=== PATIENT | female | born 1975 | race Caucasian/White ===

== ENCOUNTER → 2017-03-29 | Outpatient (CLI) | payer OTHER ==
[~2017-03-29] MED LIST: ALBUTEROL0.09 MG/A2 IH; AUGMENTIN 875-875 MG PO; CLARITIN10 MG PO; CLINDAMYCIN HC300 MG PO; COLACE100 MG PO; CYMBALTA20 M1 PO; CYMBALTA30 MG PO; FEROSUL325 MG PO; FERRATE325 MG PO; FLONASE ALLERG9.9 ML NAS; FLOVENT0.044 MG/A IH; MACROBID100 M1 PO; MEDROL DOSEPAK4 MG PO; MOBIC7.5 MG PO; MOTRIN800 MG PO; PEPCID20 MG PO; PREDNISONE10 MG PO; PREDNISONE20 MG PO; PRENATAL1 TA1 PO; PRILOSEC10 MG/Pack PO; PROGESTERONE IJ; QVAR40 MCG INH; SINGULAIR10 MG PO; SINGULAIR5 MG PO; VICODIN 5-3001 EACH PO; ZITHROMAX250 MG PO; ZOLOFT50 MG PO
== END | disposition home or self-care (01) ==
LOC: RAD 11:42
DX: M17.0 Bilateral primary osteoarthritis of knee (principal); M47.895 Other spondylosis, thoracolumbar region; M25.552 Pain in left hip; M54.6 Pain in thoracic spine; M54.2 Cervicalgia; M54.5 Low back pain; Z90.49 Acquired absence of other specified parts of digestive tract

== ENCOUNTER 2017-12-20 10:34 | Emergency (ER) | payer OTHER ==
[~2017-12-20] VITALS: Ht 157.4 cm; Wt 142.9 kg
[2017-12-20] MEDS ORDERED: CELEXA20 MG PO (10:40)
[2017-12-20] MEDS ORDERED: KEFLEX500 M1 PO (10:51)
== END 2017-12-20 11:05 | disposition home or self-care (01) ==
LOC: ED 10:34
DX: S91.312A Laceration without foreign body, left foot, initial encounter (principal); F17.200 Nicotine dependence, unspecified, uncomplicated; Z91.041 Radiographic dye allergy status; Z79.899 Other long term (current) drug therapy; W26.0XXA Contact with knife, initial encounter; Y93.89 Activity, other specified; Y92.89 Other specified places as the place of occurrence of the external cause; Y99.8 Other external cause status

== ENCOUNTER 2019-04-18 17:23 | Emergency (ER) | payer OTHER ==
[~2019-04-18] VITALS: Ht 157.4 cm; Wt 140.6 kg
[~2019-04-18 17:23] MED LIST changes: +CELEXA20 MG PO; +KEFLEX500 M1 PO
[2019-04-18] MEDS ORDERED: ROBAXIN500 M1 PO (19:54)
[2019-04-18] MEDS ORDERED: PREDNISONE20 M1 PO (19:54)
== END 2019-04-18 20:04 | disposition home or self-care (01) ==
LOC: ED 17:23
DX: M54.12 Radiculopathy, cervical region (principal); Z79.899 Other long term (current) drug therapy

== ENCOUNTER → 2020-04-23 | Outpatient (CLI) | payer BC, OTHER ==
[~2020-04-23] MED LIST changes: +PREDNISONE20 M1 PO; +ROBAXIN500 M1 PO
== END | disposition home or self-care (01) ==
LOC: US 14:40
DX: N83.292 Other ovarian cyst, left side (principal); N76.4 Abscess of vulva

== ENCOUNTER → 2020-09-13 | Outpatient (CLI) | payer BC, OTHER | END | disposition home or self-care (01) | LOC: RAD 07:34 | PROVIDERS: ATTEND Surgery | DX: Z01.818 Encounter for other preprocedural examination (principal); Z90.49 Acquired absence of other specified parts of digestive tract ==

== ENCOUNTER 2022-11-09 21:10 | Emergency (ER) | payer OTHER, BC ==
[~2022-11-09] VITALS: Ht 157.4 cm; Wt 90.7 kg
== END 2022-11-09 22:01 | disposition home or self-care (01) ==
LOC: ED 21:10
DX: S90.32XA Contusion of left foot, initial encounter (principal); K21.9 Gastro-esophageal reflux disease without esophagitis; F32.A Depression, unspecified; Z91.041 Radiographic dye allergy status; Z90.89 Acquired absence of other organs; W20.8XXA Other cause of strike by thrown, projected or falling object, initial encounter; Y93.89 Activity, other specified; Y92.89 Other specified places as the place of occurrence of the external cause; Y99.8 Other external cause status

== ENCOUNTER → 2022-12-16 | Outpatient (CLI) | payer OTHER ==
[2022-12-16 15:55] LABS: BASO % 0.6 % (0.0-1.0); EOS # 0.2 10*3/uL (0.0-0.4); EOS % 3.6 % (1.0-4.0); HEMATOCRIT 43.3 % (37.0-47.0); LYMPH # 2.3 10*3/uL (1.3-4.4); LYMPH % 37.8 % (27.0-41.0); MEAN CELL VOLUME 94.1 fl (81.0-99.0); MEAN CORPUSCULAR HGB 32.4 pg (27.0-31.0); MEAN CORPUSCULAR HGB CONC 34.4 g/dl (33.0-37.0); MEAN PLATELET VOLUME 8.8 fl (9.6-12.3); MONO # 0.5 10*3/uL (0.1-1.0); MONO % 7.8 % (3.0-9.0); NEUT # 3.1 10*3/uL (2.3-7.9); NEUT % 49.9 % (47.0-73.0); PLATELET COUNT AUTOMATED 297 10*3/uL (130-400); RETICULOCYTE % 1.64 % (0.50-2.50); WHITE BLOOD COUNT 6.2 10*3/uL (4.8-10.8)
[2022-12-16 15:55] LABS: BILIRUBIN Negative (Negative); BLOOD Negative (Negative); CLARITY Clear (Clear); COLOR Yellow (Yellow); GLUCOSE Negative (Negative); KETONE Negative (Negative); LEUKO ESTERASE Negative (Negative); NITRITE Negative (Negative); UROBILINOGEN 0.2 E.U./dl (0.0-1.0)
[2022-12-16 16:04] LABS: RBC 0-2 rbc/hpf (0-2); WBC 0-2 wbc/hpf (0-5)
[2022-12-16 16:17] LABS: ALKALINE PHOSPHATASE 159 U/L (46-116); BUN 6 mg/dl (9-23); CHLORIDE 102 mmol/L (98-107); CHOLESTEROL 137 mg/dL (<200); GAMMA GLUTAMYL TRANSPEPTIDASE 402 U/L (0-73); LDL CHOLESTEROL 50 mg/dL (9-159); SGPT/ALT 62 U/L (10-49); THYROID STIM HORMONE (HS) 0.675 uIU/ml (0.550-4.780); TOTAL PROTEIN 5.9 gm/dL (6.0-8.0); TRIGLYCERIDES 119 mg/dl (<150)
== END | disposition home or self-care (01) ==
LOC: LAB 15:33
PROVIDERS: ATTEND Family Medicine
DX: R06.02 Shortness of breath (principal); E78.5 Hyperlipidemia, unspecified; R53.83 Other fatigue; R79.89 Other specified abnormal findings of blood chemistry; R94.8 Abnormal results of function studies of other organs and systems; E55.9 Vitamin D deficiency, unspecified

== ENCOUNTER → 2022-12-22 | Outpatient (CLI) | payer OTHER ==
[~2022-12-22] MED LIST changes: +CYCLOBENZAPRINE5 M3 PO; +HYDROCODONE-AC1 EAC1 PO
[2022-12-22 18:53] LABS: ALKALINE PHOSPHATASE 138 U/L (46-116); BUN 6 mg/dl (9-23); CHLORIDE 102 mmol/L (98-107); GAMMA GLUTAMYL TRANSPEPTIDASE 317 U/L (0-73); POTASSIUM 3.2 mmol/L (3.4-5.1); SGPT/ALT 37 U/L (10-49); TOTAL PROTEIN 6.2 gm/dL (6.0-8.0)
[2022-12-23 10:07] LABS: HBSAG Negative (Negative); HEP B CORE AB, IGM Negative (Negative); HEPATITIS C ANTIBODY Non Reactive (Non Reactive)
== END | disposition home or self-care (01) ==
LOC: LAB 18:02
PROVIDERS: ATTEND Family Medicine
DX: E78.5 Hyperlipidemia, unspecified (principal); R53.83 Other fatigue; R79.89 Other specified abnormal findings of blood chemistry; R74.8 Abnormal levels of other serum enzymes

== ENCOUNTER 2022-12-24 08:53 | Emergency (ER) | payer OTHER ==
[~2022-12-24] VITALS: Ht 154.9 cm; Wt 104.3 kg
[~2022-12-24 08:53] MED LIST changes: -CYCLOBENZAPRINE5 M3 PO; -HYDROCODONE-AC1 EAC1 PO
[2022-12-24 09:32] LABS: BASO % 0.5 % (0.0-1.0); EOS # 0.1 10*3/uL (0.0-0.4); EOS % 1.5 % (1.0-4.0); HEMATOCRIT 41.1 % (37.0-47.0); LYMPH # 1.8 10*3/uL (1.3-4.4); MEAN CELL VOLUME 96.7 fl (81.0-99.0); MEAN CORPUSCULAR HGB 31.8 pg (27.0-31.0); MEAN CORPUSCULAR HGB CONC 32.8 g/dl (33.0-37.0); MEAN PLATELET VOLUME 8.7 fl (9.6-12.3); MONO # 0.6 10*3/uL (0.1-1.0); MONO % 6.5 % (3.0-9.0); NEUT # 6.3 10*3/uL (2.3-7.9); NEUT % 71.2 % (47.0-73.0); PLATELET COUNT AUTOMATED 268 10*3/uL (130-400); RED BLOOD COUNT 4.25 10*6/uL (4.10-5.10); WHITE BLOOD COUNT 8.8 10*3/uL (4.8-10.8)
[2022-12-24 09:46] LABS: ALKALINE PHOSPHATASE 114 U/L (46-116); BUN 5 mg/dl (9-23); CHLORIDE 104 mmol/L (98-107); POTASSIUM 3.3 mmol/L (3.4-5.1); SGPT/ALT 40 U/L (10-49); TOTAL PROTEIN 5.6 gm/dL (6.0-8.0)
[2022-12-24] MEDS ORDERED: CYCLOBENZAPRINE5 M3 PO (12:13)
[2022-12-24] MEDS ORDERED: HYDROCODONE-AC1 EAC1 PO (12:13)
== END 2022-12-24 13:35 | disposition home or self-care (01) ==
LOC: ED 08:53
PROVIDERS: Internal Medicine
DX: S00.81XA Abrasion of other part of head, initial encounter (principal); J45.909 Unspecified asthma, uncomplicated; Z91.041 Radiographic dye allergy status; Z90.89 Acquired absence of other organs; V47.5XXA Car driver injured in collision with fixed or stationary object in traffic accident, initial encounter; Y93.89 Activity, other specified; Y92.410 Unspecified street and highway as the place of occurrence of the external cause; Y99.0 Civilian activity done for income or pay

== ENCOUNTER → 2024-02-01 | Outpatient (CLI) | payer OTHER ==
[~2024-02-01] MED LIST changes: +CYCLOBENZAPRINE5 M3 PO; +HYDROCODONE-AC1 EAC1 PO
== END | disposition home or self-care (01) ==
LOC: RAD 10:14
PROVIDERS: ATTEND Family Medicine
DX: M25.562 Pain in left knee (principal)

== ENCOUNTER → 2024-02-16 | Outpatient (CLI) | payer OTHER ==
[2024-02-16 16:45] LABS: BASO # 0.1 10*3/uL (0.0-0.1); BASO % 0.6 % (0.0-1.0); BILIRUBIN Negative (Negative); BLOOD Negative (Negative); CLARITY Clear (Clear); COLOR Yellow (Yellow); EOS # 0.3 10*3/uL (0.0-0.4); GLUCOSE Negative (Negative); HEMATOCRIT 47.6 % (37.0-47.0); KETONE Negative (Negative); LEUKO ESTERASE Negative (Negative); LYMPH # 3.1 10*3/uL (1.3-4.4); LYMPH % 30.6 % (27.0-41.0); MEAN CELL VOLUME 94.1 fl (81.0-99.0); MEAN CORPUSCULAR HGB 29.6 pg (27.0-31.0); MEAN CORPUSCULAR HGB CONC 31.5 g/dl (33.0-37.0); MEAN PLATELET VOLUME 8.9 fl (9.6-12.3); MONO # 0.8 10*3/uL (0.1-1.0); MONO % 7.9 % (3.0-9.0); NEUT # 5.7 10*3/uL (2.3-7.9); NEUT % 57.3 % (47.0-73.0); NITRITE Negative (Negative); PH 6.5 (4.5-8.0); PLATELET COUNT AUTOMATED 325 10*3/uL (130-400); RED BLOOD COUNT 5.06 10*6/uL (4.10-5.10); RED CELL DISTRI WIDTH 12.8 % (0-14.5); SPECIFIC GRAVITY <= 1.005 (1.001-1.030); UROBILINOGEN 0.2 E.U./dl (0.0-1.0)
[2024-02-16 17:15] LABS: ALKALINE PHOSPHATASE 160 U/L (46-116); BUN 11 mg/dl (9-23); CHLORIDE 104 mmol/L (98-107); CHOLESTEROL 178 mg/dL (<200); GAMMA GLUTAMYL TRANSPEPTIDASE 225 U/L (0-73); LDL CHOLESTEROL 77 mg/dL (9-159); POTASSIUM 3.7 mmol/L (3.4-5.1); SGPT/ALT 484 U/L (5-49); T3 UPTAKE 28.4 % (22.4-36.7); TOTAL PROTEIN 6.8 gm/dL (6.0-8.0); TRIGLYCERIDES 136 mg/dl (<150); URIC ACID 4.1 mg/dL (3.1-7.8)
[2024-02-16 17:30] LABS: VITAMIN D, 25-HYDROXY 32.4 ng/mL (30-100)
== END | disposition home or self-care (01) ==
LOC: LAB 16:08
PROVIDERS: ATTEND Family Medicine
DX: E78.5 Hyperlipidemia, unspecified (principal); E55.9 Vitamin D deficiency, unspecified; R79.89 Other specified abnormal findings of blood chemistry; R74.8 Abnormal levels of other serum enzymes

== ENCOUNTER → 2024-02-23 | Outpatient (CLI) | payer OTHER ==
[2024-02-24 05:07] LABS: HBSAG Negative (Negative); HEP B CORE AB, IGM Negative (Negative); HEPATITIS C ANTIBODY Non Reactive (Non Reactive)
== END | disposition home or self-care (01) ==
LOC: LAB 11:39
PROVIDERS: ATTEND Family Medicine
DX: R79.89 Other specified abnormal findings of blood chemistry (principal); E55.9 Vitamin D deficiency, unspecified; R53.83 Other fatigue

== ENCOUNTER → 2024-03-09 | Outpatient (CLI) | payer OTHER | END | disposition home or self-care (01) | LOC: US 00:56 | PROVIDERS: ATTEND Family Medicine | DX: K76.0 Fatty (change of) liver, not elsewhere classified (principal); R16.0 Hepatomegaly, not elsewhere classified; R10.84 Generalized abdominal pain; R10.2 Pelvic and perineal pain; Z90.49 Acquired absence of other specified parts of digestive tract ==

== ENCOUNTER → 2024-03-29 | Outpatient (CLI) | payer OTHER | END | disposition home or self-care (01) | LOC: CT 00:31 | PROVIDERS: ATTEND Family Medicine | DX: R10.84 Generalized abdominal pain (principal); Z90.49 Acquired absence of other specified parts of digestive tract; Z97.5 Presence of (intrauterine) contraceptive device ==

== ENCOUNTER → 2024-12-08 | Outpatient (CLI) | payer OTHER ==
[2024-12-12 12:07] LABS: EGG WHITE, IgE <0.10 kU/L (Class 0); PEANUT <0.10 kU/L (Class 0); SOYBEAN <0.10 kU/L (Class 0); WHEAT <0.10 kU/L (Class 0)
[2024-12-12 14:07] LABS: ALTERNARIA ALTERNATA, IGE <0.10 kU/L (Class 0); ASPERGILLUS FUMIGATU, IGE <0.10 kU/L (Class 0); BIRCH, COMMON SILVER IGE <0.10 kU/L (Class 0); CLADO HERBARUM, IGE <0.10 kU/L (Class 0); D FARINAE 3.28 kU/L (Class III); DOG DANDER <0.10 kU/L (Class 0); ELM, AMERICAN <0.10 kU/L (Class 0); MAPLE LEAF SYCAMORE, IGE <0.10 kU/L (Class 0); MAPLE/BOX ELDER, IGE <0.10 kU/L (Class 0); MOUSE URINE <0.10 kU/L (Class 0); PENICILLIUM CHRYSOGENUM, IGE <0.10 kU/L (Class 0); PIGWEED, COMMON <0.10 kU/L (Class 0); SHEEP SORREL (DOCK), IGE <0.10 kU/L (Class 0); TIMOTHY GRASS 0.78 kU/L (Class II); WALNUT (POLLEN) <0.10 kU/L (Class 0); WHITE MULBERRY <0.10 kU/L (Class 0)
== END | disposition home or self-care (01) ==
LOC: LAB 10:58
PROVIDERS: ATTEND Family Medicine
DX: R79.89 Other specified abnormal findings of blood chemistry (principal); R53.83 Other fatigue

== ENCOUNTER 2025-01-15 13:07 | Emergency (ER) | payer OTHER ==
[~2025-01-15] VITALS: Ht 154.9 cm; Wt 83.9 kg
[2025-01-15] MEDS ORDERED: Sulfamethoxazole/Trimethopri 1 TAB TAB PO ONE (13:35)
[2025-01-15] MEDS ORDERED: SEPTDS PO (13:35)
== END 2025-01-15 14:34 | disposition home or self-care (01) ==
LOC: ED 13:07
DX: T81.31XA Disruption of external operation (surgical) wound, not elsewhere classified, initial encounter (principal); Z91.041 Radiographic dye allergy status; Z91.013 Allergy to seafood; Z79.899 Other long term (current) drug therapy; Z79.2 Long term (current) use of antibiotics; Y83.8 Other surgical procedures as the cause of abnormal reaction of the patient, or of later complication, without mention of misadventure at the time of the procedure; Y92.89 Other specified places as the place of occurrence of the external cause

== ENCOUNTER → 2025-02-08 | Outpatient (CLI) | payer OTHER ==
[~2025-02-08] MED LIST changes: +SEPTDS PO
== END | disposition home or self-care (01) ==
LOC: LAB 11:24
PROVIDERS: ATTEND Family Medicine
DX: R79.89 Other specified abnormal findings of blood chemistry (principal); R53.83 Other fatigue

== ENCOUNTER → 2025-06-14 | Outpatient (CLI) | payer OTHER ==
[2025-06-14 10:27] LABS: BASO # 0.0 10*3/uL (0.0-0.1); BASO % 0.7 % (0.0-1.0); EOS # 0.2 10*3/uL (0.0-0.4); EOS % 4.0 % (1.0-4.0); MEAN CELL VOLUME 90.1 fl (81.0-99.0); MEAN CORPUSCULAR HGB 29.8 pg (27.0-31.0); MEAN PLATELET VOLUME 9.1 fl (9.6-12.3); MONO # 0.4 10*3/uL (0.1-1.0); MONO % 9.4 % (3.0-9.0); NEUT # 2.1 10*3/uL (2.3-7.9); NEUT % 46.9 % (47.0-73.0); NUCLEATED RED BLOOD CELL 0.0 % (0.0-0.0); NUCLEATED RED BLOOD CELL 0.0 10*3/uL (0.0-0.0); PLATELET COUNT AUTOMATED 197 10*3/uL (130-400); RED CELL DISTRI WIDTH 13.9 % (0-14.5); RETICULOCYTE % 0.78 % (0.50-2.50)
[2025-06-14 10:28] LABS: BILIRUBIN Negative (Negative); BLOOD Negative (Negative); CLARITY Clear (Clear); COLOR Yellow (Yellow); KETONE Trace (Negative); LEUKO ESTERASE Negative (Negative); NITRITE Negative (Negative); PH 5.0 (4.5-8.0); SPECIFIC GRAVITY 1.025 (1.001-1.030); UROBILINOGEN 1.0 E.U./dl (0.0-1.0)
[2025-06-14 10:55] LABS: BUN 8 mg/dl (9-23); GAMMA GLUTAMYL TRANSFERASE 21 U/L (0-38); LDL CHOLESTEROL 60 mg/dL (9-159); SGPT/ALT 21 U/L (5-49); T3 UPTAKE 37.3 % (22.4-36.7); THYROXINE (T4) TOTAL 6.4 ug/dl (4.5-10.9)
[2025-06-14 11:13] LABS: BACTERIA 1+; MUCOUS 1+
[2025-06-14 11:43] LABS: VITAMIN D, 25-HYDROXY 61.5 ng/mL (30-100)
== END | disposition home or self-care (01) ==
LOC: LAB 10:08
PROVIDERS: ATTEND Family Medicine
DX: E78.5 Hyperlipidemia, unspecified (principal); E55.9 Vitamin D deficiency, unspecified; R53.83 Other fatigue; R79.89 Other specified abnormal findings of blood chemistry